=== PATIENT | female | born 2000 | race Caucasian/White ===

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

== ENCOUNTER 2022-03-21 15:35 | Emergency (ER) | payer BC, MEDICAID, SELFPAY ==
[2022-03-21 16:26] LABS: #Eosinphils 0.3 thou/uL (0.0-0.7); #Lymphocytes 1.9 thou/uL (1.20-3.40); #Monocytes 0.6 thou/uL (0.11-0.59); #Neutrophils 6.6 thou/uL (1.40-6.50); %Basophils 0.5 % (0.0-1.0); %Eosinophils 2.7 % (0.0-10.0); %Monocytes 6.2 % (0.0-4.0); %Neutrophils 70.6 % (31.0-61.0); Hemoglobin 12.1 g/dL (12.0-16.0); Mean Corpuscular HGB CONC 31.3 g/dL (32.0-36.0); Mean Corpuscular Hemoglobin 29.1 pg (25.0-35.0); Mean Corpuscular Volume 92.9 fL (78.0-98.0); Mean Platelet Volume 7.9 fL (7.4-10.4); Platelet Count 323 thou/uL (130-400); Red Blood Cell (RBC) Count 4.16 mill/uL (4.00-5.20); White Blood Cell (WBC) Count 9.3 thou/uL (4.8-10.8)
[2022-03-21 16:29] LABS: Bilirubin Negative (Negative); Blood, Urine Negative (Negative); Clarity Clear (Clear); Glucose, Urine (Dipstick) Negative (Negative); Ketone, Urine Negative (Negative); Leukocyte Small (Negative); Nitrite Negative (Negative); Protein, Urine (Dipstick) Negative (Neg-Trace); Specific Gravity, Urine 1.015 (1.005-1.030); Urobilinogen 0.2 mg/dL (Less than 2); pH, Urine 7.5 (5.0-9.0)
[2022-03-21 16:32] LABS: Bacteria/HPF None Seen HPF (None Seen); RBC/HPF None Seen HPF (0-3); Squamous Epithelial 0-3 HPF (0-3); WBC/HPF 0-3 HPF (0-3)
[2022-03-21 16:44] LABS: ALT (SGPT) 10 U/L (8-55); AST (SGOT) 12 U/L (5-34); Albumin 3.6 g/dL (3.5-5.0); Alkaline Phosphatase 54 U/L (40-100); Anion Gap 13 mmol/L (10-20); BUN (Urea Nitrogen) 4 mg/dL (7.0-18.7); Bilirubin, Total 0.2 mg/dL (0.2-1.2); Calc. Creatinine Clearance 0 mL/min (70-130); Calcium 8.8 mg/dL (7.8-10.44); Carbon Dioxide 18 mmol/L (22-29); Chloride 104 mmol/L (98-107); Estimated GFR 136; Globulin 2.7 g/dL (2.4-3.5); Glucose 88 mg/dL (70-105); Lipase 9 U/L (8-78); Protein, Total 6.3 g/dL (6.0-8.3); Sodium 131 mmol/L (136-145)
== END 2022-03-21 17:31 | disposition home or self-care (01) ==
LOC: NAV ERS 15:35
DX: O99.891 Other specified diseases and conditions complicating pregnancy (principal); R10.9 Unspecified abdominal pain; R10.811 Right upper quadrant abdominal tenderness; Z3A.17 17 weeks gestation of pregnancy
CPT/HCPCS: 36415; 80053; 81003; 81015; 83690; 85025; 99284

== ENCOUNTER 2024-07-26 19:29 | Emergency (ER) | payer OTHER, SELFPAY ==
[2024-07-26 19:59] LABS: Bilirubin Small (Negative); Blood, Urine Negative (Negative); Glucose, Urine (Dipstick) Negative (Negative); Ketone, Urine Trace mg/dL (Negative); Leukocyte Trace (Negative); Nitrite Negative (Negative); Protein, Urine (Dipstick) 100 mg/dL (Neg-Trace); pH, Urine 7.5 (5.0-9.0)
[2024-07-26 20:10] LABS: Clarity Hazy (Clear); RBC/HPF 0-3 HPF (0-3)
[2024-07-26 20:11] LABS: Bacteria/HPF 3+ HPF (None Seen); CAUTI Indications for Culture Pelvic or flank pain; Mucous/LPF 1+ LPF (<2+); Transitional Epithelial 0-3 HPF (None Seen)
[2024-07-26 20:12] LABS: Urine Culture Reflex No No
[2024-07-26 20:12] LABS: Pregnancy Test - Urine (BHCG) Negative (Negative); Pregu Control Background? CLEAR/WHITE (CLR/WHITE); Pregu Control Bar Appear? YES (CONTROL BAR)
[2024-07-26] MEDS ORDERED: Pantoprazole 40 MG VIAL ONE (20:13)
[2024-07-26] MEDS ORDERED: Ondansetron ODT 4 MG TAB ONE (20:13)
[2024-07-26 20:33] LABS: ALT (SGPT) 14 U/L (8-55); AST (SGOT) 10 U/L (5-34); Albumin 3.8 g/dL (3.5-5.0); Alkaline Phosphatase 57 U/L (40-110); Anion Gap 14 mmol/L (10-20); BUN (Urea Nitrogen) 8 mg/dL (7.0-18.7); Bilirubin, Total 0.4 mg/dL (0.2-1.2); Calc. Creatinine Clearance 0 mL/min (70-130); Calcium 8.4 mg/dL (7.8-10.44); Carbon Dioxide 23 mmol/L (22-29); Chloride 103 mmol/L (98-107); Estimated GFR 127; Globulin 3.2 g/dL (2.4-3.5); Glucose 97 mg/dL (70-105); Lipase 7 U/L (8-78); Potassium 3.7 mmol/L (3.5-5.1); Sodium 136 mmol/L (136-145)
[2024-07-26 20:39] LABS: Hematocrit 42.3 % (36.0-47.0); Hemoglobin 13.8 g/dL (12.0-16.0); Lymphocytes 18 % (21-51); MDiff Complete? YES; Mean Corpuscular HGB CONC 32.7 g/dL (32.0-36.0); Mean Corpuscular Hemoglobin 28.6 pg (27.0-31.0); Mean Corpuscular Volume 87.6 fl (78.0-98.0); Mean Platelet Volume 7.4 fL (7.4-10.4); Monocytes 8 % (0-10); Neutrophil 65 % (42-75); Platelet Adequacy Comment Appears Adequate; Platelet Count 379 10x3/uL (130-400); RBC Distribution Width 12.5 % (11.5-14.5); Red Blood Cell (RBC) Count 4.83 mill/uL (4.20-5.40)
== END 2024-07-26 21:12 | disposition home or self-care (01) ==
LOC: NAV ERS 19:29
DX: A08.4 Viral intestinal infection, unspecified (principal)
CPT/HCPCS: 80053; 81001; 81025; 83690; 85025; 96374; J2470; Q0162

== ENCOUNTER 2024-09-17 17:47 | Emergency (ER) | payer SELFPAY ==
[2024-09-17 18:41] LABS: Bilirubin Negative (Negative); Blood, Urine Negative (Negative); Clarity Hazy (Clear); Glucose, Urine (Dipstick) Negative (Negative); Ketone, Urine Negative (Negative); Leukocyte Trace (Negative); Nitrite Negative (Negative); Protein, Urine (Dipstick) Negative (Neg-Trace); Specific Gravity, Urine 1.015 (1.005-1.030); pH, Urine 7.5 (5.0-9.0)
[2024-09-17 18:53] LABS: Bacteria/HPF 1+ HPF (None Seen); CAUTI Indications for Culture Pregnancy; Mucous/LPF 1+ LPF (<2+); RBC/HPF 0-3 HPF (0-3); Transitional Epithelial 0-3 HPF (None Seen); WBC/HPF 0-3 HPF (0-3)
[2024-09-17 18:55] LABS: Urine Culture Reflex Yes Yes
[2024-09-18 01:23] LABS: Chlamydia by PCR, Vaginal Swab Not Detected (NotDetected); GC by PCR, Vaginal Swab Not Detected (NotDetected)
== END 2024-09-17 19:00 | disposition home or self-care (01) ==
LOC: NAV ERS 17:47
DX: O99.891 Other specified diseases and conditions complicating pregnancy (principal); N89.8 Other specified noninflammatory disorders of vagina; Z3A.01 Less than 8 weeks gestation of pregnancy
CPT/HCPCS: 81001; 87086; 87480; 87491; 87510; 87591; 87660; 99283